=== PATIENT | male | born 1980 | race Caucasian/White ===

== ENCOUNTER 2020-12-07 19:32 | Emergency (ER) | payer MEDICAID, SELFPAY ==
--- NOTE | 2020-12-07 19:36 | XR_ITS ---
EXAMINATION: X-RAY RIGHT HAND/WRIST CLINICAL INFORMATION: Right index finger injury COMPARISON: None TECHNIQUE: 4 views FINDINGS: Right index finger: No fracture or dislocation is seen. Apparent dressing overlying the distal digit.. Soft tissue injury of the distal ulnar aspect of the fingers difficult exclude. No definite radiopaque foreign body is identified. Chronic left ulnar styloid fracture.. No acute fracture is otherwise seen. XR/XR hand wrist RT IMPRESSION: No evidence of acute fracture or dislocation of the right index finger.
--- NOTE | 2020-12-07 19:37 | ED_ITS ---
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 He states his tetanus was within the past year. <Katarzyna Pinedo MD - Last Filed: 12/07/20 21:52> Related Data Allergies/Adverse Reactions: Allergies Allergy/AdvReac Type Severity Reaction Status Date / Time amoxicillin Allergy Hives Verified 12/07/20 20:48 <LILIANE rAora - Last Filed: 12/07/20 19:39> Review of Systems Review of Systems: Pertinent positives and negatives as stated in HPI 10 point review systems is otherwise negative. <Katarzyna Pinedo MD - Last Filed: 12/07/20 21:52> PMFSH Past Medical History Source: nursing notes reviewed <Katarzyna Pinedo MD - Last Filed: 12/07/20 21:52> Medical History: Medical History Patient denies significant medical history <LILIANE Arora - Last Filed: 12/07/20 19:39> Social History Social History: Social History Advance Directives: No <LILIANE Arora - Last Filed: 12/07/20 19:39> Physical Exam Vital Signs: Vital Signs: Last Vital Signs Temp 98.9 F 12/07/20 20:45 Pulse 97 12/07/20 20:45 Resp 16 12/07/20 20:45 BP 135/76 12/07/20 20:45 Pulse Ox 96 12/07/20 20:45 Body Mass Index 19.9 <LILIANE Arora - Last Filed: 12/07/20 19:39> Vital Signs: Last Vital Signs Temp 98.9 F 12/07/20 20:45 Pulse 97 12/07/20 20:45 Resp 16 12/07/20 20:45 BP 135/76 12/07/20 20:45 Pulse Ox 96 12/07/20 20:45 Body Mass Index 19.9 <Katarzyna Pinedo MD - Last Filed: 12/07/20 21:52> VITAL SIGNS: Reviewed. GENERAL: Well developed, well nourished, in no acute distress. NECK: Supple, no adenopathy LUNGS: Normal breath sounds. SpO2<96> CARDIOVASCULAR: Regular rate and rhythm without noted murmurs ABDOMEN: Soft, non-tender, non-distended with bowel sounds. RIGHT INDEX FINGER: SUPERFICIAL REMOVAL OF EPIDERMAL LAYER BETWEEN THE IP AND PIP WITHOUT NOTED DEFORMITY, CAPILLARY REFILL LESS THAN 3 SECONDS, FULL RANGE OF MOTION. NEUROLOGIC: Alert and oriented x 4. <Katarzyna Pinedo MD - Last Filed: 12/07/20 21:52> Course Course Course Narrative: This is a 40-year-old male with history and clinical presentation consistent with superficial epidermal layer removal of the right dorsum index finger between the IP and PIP and review of chest x-ray is negative for fracture or dislocation. Tetanus is up-to-date patient had his wound dressed with bacitracin, Telfa, Kerlix and was discharged home with instructions for follow- up. 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 Patient will be sent for hand xray. history, physical exam, and decision making will be done by ED provider. <LILIANE Arora - Last Filed: 12/07/20 19:39> Time: 19:38 <LILIANE Arora - Last Filed: 12/07/20 19:39> Discharge Plan Discharge Clinical Impression: Abrasion <LILIANE Arora - Last Filed: 12/07/20 19:39> Patient Disposition: Home, Self-Care <LILIANE Arora - Last Filed: 12/07/20 19:39> Instructions: Abrasion (ED) <LILIANE Arora - Last Filed: 12/07/20 19:39> Additional Instructions: 1. Tylenol 1000 mg, orally, every 6 hours as needed for pain control. Do not exceed 4000 mg within 24 hours. 2. Ibuprofen 400 mg, orally with milk or food, every 6 hours as needed for pain control. Take this medication in conjunction with Tylenol for additional symptom control. 3. Continue to exercise range of motion with the finger so that you avoid any stiffening or arthritis. 4. May cleanse with soap and water and blot dry with re-application of antibiotic ointment and cover with either large Band-Aid or gauze. 5. Please follow-up with your primary care provider. Do not hesitate to return to the emergency department she developed redness, swelling, fevers, chills at the site of the injury. <LILIANE Arora - Last Filed: 12/07/20 19:39> Referrals: Physician,None [Primary Care Provider] - 2 days <LILIANE Arora - Last Filed: 12/07/20 19:39>
[2020-12-07 20:45] VITALS: BP 135/76; PULSE 97; RESP 16; TEMP 37.2; O2SAT 96; BMI 19.9
--- NOTE | 2020-12-07 21:34 | PC.NURSE ---
NON STICK DRESSING, ANTIBIOTIC CREAM AND WRAP APPLIED TO FINGER.
[2020-12-07] MEDS: Acetaminophen 325 MG TABLET 975 MG PO (21:46)
[2020-12-07] MEDS: Ketorolac Tromethamine 15 MG/ML VIAL IM (21:46)
[2020-12-07] MEDS: Bacitracin Oint 14 GM TUBE 1 APPL TOPICAL (21:48)
== END 2020-12-07 22:23 | disposition home or self-care (01) ==
PROVIDERS: Emergency Provider Student in an Organized Health Care Education/Training Program
DX: S60.410A Abrasion of right index finger, initial encounter (principal); W31.89XA Contact with other specified machinery, initial encounter; Y93.29 Activity, other involving ice and snow; Y92.014 Private driveway to single-family (private) house as the place of occurrence of the external cause; Y99.9 Unspecified external cause status
CPT/HCPCS: 73110; 73130; 96372; 99283; 99284; J1885